=== PATIENT | male | born 1955 | race Caucasian/White ===

== ENCOUNTER 2018-10-14 11:53 | Emergency (ER) | payer MEDICARE ==
--- NOTE | 2018-10-14 12:08 | ED ---
GI/ HPI - HPI Summary HPI Summary: Pt is a 63 y/o M presenting to the ED brought in by EMS with a chief complaint of inability to urinate. He has hx of renal failure. He reports being unable to urinate since last night, but has a constant feeling that he has to go. He also reports sores on his bottom. His sx are worsened by movement, and alleviated by nothing. He had recent surgery to remove fatty deposits, and has two wound drains in place. He is currently at [facility] for rehabilitation. The pt declined bloodwork. - History of Current Complaint Chief Complaint: EDUrogenitalProblems Time Seen by Provider: 10/14/18 11:55 Stated Complaint: TROUBLE URINATING PER EMS Hx Obtained From: Patient, EMS Onset/Duration: Started Hours Ago, Still Present Timing: Constant, Lasting Hours Severity: Severe Current Severity: Severe Pain Intensity: 10 Location of Pain: Diffuse Pain Characteristics: Cramping Associated Signs and Symptoms: Positive: Other: - urinary urgency Aggravating Factor(s): Movement Alleviating Factor(s): Nothing - Allergy/Home Medications Allergies/Adverse Reactions: Allergies Allergy/AdvReac Type Severity Reaction Status Date / Time No Known Allergies Allergy Verified 10/14/18 12:05 Home Medications: Home Medications Acetaminophen TAB* [Tylenol TAB*] 650 mg PO Q6H PRN 10/14/18 [History Confirmed 10/14/18] Aspirin EC TAB* [Ecotrin EC Low Dose 81 MG*] 81 mg PO DAILY 10/14/18 [History Confirmed 10/14/18] Diphenoxylat/Atrop 2.5-0.025M* [Lomotil TAB*] 2 tab PO 0800,2000 10/14/18 [ History Confirmed 10/14/18] Ferrous Sulfate TAB* 325 mg PO DAILY 10/14/18 [History Confirmed 10/14/18] Furosemide TAB* [Lasix TAB*] 20 mg PO 0900,1600 10/14/18 [History Confirmed 09/29] Insulin ASPART (NF) [Novolog (NF)] 15 units SUBCUT 1230,1730 10/14/18 [History Confirmed 10/14/18] Insulin GLARGINE(*) [Lantus(*)] 125 units SUBCUT BEDTIME 10/14/18 [History Confirmed 10/14/18] Levothyroxine TAB* [Synthroid TAB*] 125 mcg PO 0500 10/14/18 [History Confirmed 10/14/18] Loperamide CAP* [Imodium CAP*] 2 mg PO DAILY PRN 10/14/18 [History Confirmed 09/29] Losartan TAB* [Cozaar TAB*] 25 mg PO DAILY 10/14/18 [History Confirmed 10/14/18] Metoprolol Succinate XL TAB* [Toprol XL TAB*] 100 mg PO 0900,2100 10/14/18 [ History Confirmed 10/14/18] Nystatin TOP POWDER* 1 applic TOPICAL BID 10/14/18 [History Confirmed 10/14/18] Ondansetron ODT TAB* [Zofran 4 MG Odt TAB*] 4 mg PO Q6H PRN 10/14/18 [History Confirmed 10/14/18] Simethicone TAB* [Mylicon TAB*] 80 mg PO Q6HR PRN 10/14/18 [History Confirmed ] metFORMIN* [Glucophage 500 MG TAB *] 500 mg PO 0900,1800 10/14/18 [History Confirmed 10/14/18] oxyCODONE TAB* [Roxycodone TAB 5 mg*] 5 mg PO Q4H PRN 10/14/18 [History Confirmed 10/14/18] PMH/Surg Hx/FS Hx/Imm Hx Previously Healthy: No Endocrine/Hematology History: Reports: Hx Diabetes, Hx Thyroid Disease - hypothyroidism Cardiovascular History: Reports: Hx Hypertension History: Reports: Hx Renal Disease Infectious Disease History: No Infectious Disease History: Denies: Traveled Outside the [place] in Last 30 Days - Family History Known Family History: Negative: Respiratory Disease - Social History [facility]: [facility] Hx Substance Use: No Substance Use Type: Reports: None Review of Systems Positive: urgency, other - inability to urinate Positive: Other - sores on his bottom All Other Systems Reviewed And Are Negative: Yes Physical Exam - Summary Physical Exam Summary: VITAL SIGNS: Reviewed. GENERAL: Patient is an obese male who is lying uncomfortably in the stretcher. Patient is not in any acute respiratory distress. Pt is presently very upset. HEAD AND FACE: No signs of trauma. No ecchymosis, hematomas or skull depressions. No sinus tenderness. EYES: PERRLA, EOMI x 2, No injected conjunctiva, no nystagmus. EARS: Hearing grossly intact. Ear canals and tympanic membranes are within normal limits. MOUTH: Oral mucosa is dry. NECK: Supple, trachea is midline, no adenopathy, no JVD, no carotid bruit, no c- spine tenderness, neck with full ROM. CHEST: Symmetric, no tenderness at palpation LUNGS: Clear to auscultation bilaterally. No wheezing or crackles. CVS: Regular rate and rhythm, S1 and S2 present, no murmurs or gallops appreciated. ABDOMEN: Soft, non-tender. No signs of distention. No rebound no guarding, and no masses palpated. Bowel sounds are normal. There is a healing wound from one hip to the other in length, closed with molly, without erythema, edema, or discharge. There are two drains in both hips. EXTREMITIES: FROM in all major joints, no edema, no cyanosis or clubbing. NEURO: Alert and oriented x 3. No acute neurological deficits. Speech is normal and follows commands. SKIN: Small type 1 ulcers in both buttocks. Triage Information Reviewed: Yes Vital Signs On Initial Exam: Initial Vitals Temp Pulse Resp BP Pulse Ox 97.2 F 117 19 134/103 98 10/14/18 12:03 10/14/18 12:03 10/14/18 12:03 10/14/18 12:03 10/14/18 12:03 Vital Signs Reviewed: Yes Diagnostics - Vital Signs Vital Signs Temp Pulse Resp BP Pulse Ox 10/14/18 12:03 97.2 F 117 19 134/103 98 - Laboratory Lab Statement: Any lab studies that have been ordered have been reviewed, and results considered in the medical decision making process. Re-Evaluation - Re-Evaluation 1st re-eval Re-Evaluation Time: 12:54 Change: Unchanged Comment: Made aware that the pt is refusing tomlinson catheter placement. GIGU Course/Dx - Course Assessment/Plan: This patient is a 63-year-old male who presents to the emergency department with a chief complaint of being unable to urinate since last night. At this point we offered the patient blood work, IV fluids, and the urinary Tomlinson catheter. We need to assess the patient for urinary retention , renal failure, UTI, hematuria. However, the patient refused. Patient refuses the blood work, patient refuses the Tomlinson catheter, he really refuses everything. I spent approximately 40 minutes explaining to the patient the need for all this workup however the patient refuses. The patient is alert and oriented 3 but he continues to refuse. We gave him a couple minutes to think about it, returned with the nurse, and we explained to him again for approximately 25 minutes of the needed workup however the patient still refuses. The patient reports that he will sign an AGAINST MEDICAL ADVICE. I extensively discussed with the patient the benefits and risk of leaving AMA. I also discussed the alternatives to leaving AMA, however, the patient still insist to leave the hospital AMA. The patient is clinically sober, free from distracting injury, appears to have intact insight and judgment and reason and in my opinion has the capacity to make decisions. Patient has full capacity and is cognitively intact. The patient presents with being unable to urinate, I have explained that I am concerned with all his symptoms and may represent urinary retention, sepsis, renal failure and . The patient verbalizes the understanding of my concerns. The primary nurse and the charge nurse also strongly recommended that the patient should not leave AMA. Patient understands the risk of leaving AMA, which includes but is not restricted to . Patient signed the AMA form. Patient was also advised to return to ED if he changes his mind, if the symptoms worsen, or other symptoms appear. Patient understands and agrees. Again, I discussed all the findings and test results with the patient. Patient was instructed to return to the emergency room immediately if any of the symptoms return or worsens. Plan of care was discussed with the patient and understands and agrees. All questions were answered at patient satisfaction. There were no further complaints or concerns. Patient signed AMA and he was discharged AMA. - Diagnoses Provider Diagnoses: Urinary retention Discharge - Sign-Out/Discharge Documenting (check all that apply): Patient Departure Patient Received Moderate/Deep Sedation with Procedure: No - Discharge Plan Condition: Stable Disposition: AGAINST MEDICAL ADVICE Referrals: Dandre Gutierrez MD [Medical Doctor] - Additional Instructions: Please follow up with your primary care provider within the next three days. Return to the ED with any new or worsening symptoms. - Billing Disposition and Condition Condition: STABLE Disposition: Against Medical Advice - Attestation Statements Document Initiated by Tristonibe: Yes Documenting Scribe: Luly Bingham Provider For Whom Scribe is Documenting (Include Credential): Carlos Peña MD. Scribe Attestation: ILuly, scribed for Carlos Peña MD. on 10/14/18 at 1753. Scribe Documentation Reviewed: Yes Provider Attestation: The documentation as recorded by the tristonibeLuly accurately reflects the service I personally performed and the decisions made by , Carlos Peañ MD. Status of Scribe Document: Viewed
[2018-10-14] MEDS ORDERED: NS 0.9% 1000 ML** 1,000 ML IV ONE (12:11)
--- OUTSIDE RECORDS SUMMARY | 2018-10-14 12:30 | XMS REPORT | Continuity of Care Document ---
:1955 External Reference #:[id number] Author Name Sarai Flores Care Team Providers Name Role Phone Dandre Gutierrez MD Primary Care Physician Unavailable Payers Date Identification Numbers Payment Provider Subscriber Policy Number: [id number] Medicare Augusto Santiago PayID: [id number] [address] [place] [address] Advance Directives Type Date Description Status Comment Other Directive 01/10/2018 Health Care Proxy Current and Verified Problems Date Description Provider Status Onset: 02/26/2017 Secondary diabetes mellitus Dandre Gutierrez M.D. Active Onset: 02/26/2017 Essential hypertension Dandre Gutierrez M.D. Active Onset: 02/26/2017 Mixed hyperlipidemia Dandre Gutierrez M.D. Active Onset: 02/26/2017 Hypothyroidism Dandre Gutierrez M.D. Active Onset: 02/26/2017 Gastroesophageal reflux disease Dandre Gutierrez M.D. Active Onset: 02/26/2017 Morbid obesity Dandre Gutierrez M.D. Active Onset: 03/26/2017 Anemia Dandre Gutierrez M.D. Active Onset: 11/03/2017 Type 2 diabetes mellitus Dandre Guiterrez M.D. Active Onset: 01/09/2018 Type 2 diabetes mellitus with ulcer Dandre Gutierrez M.D. Active Onset: 04/02/2018 Lymphedema Dnadre Gutierrez M.D. Active Family History Date Family Member(s) Observation Comments General No Current Problems adopted Social History Type Date Description Comments Sex Unknown Marital Status Lives With Alone Occupation Retired ETOH Use Denies alcohol use Tobacco Use Start: Unknown Patient has never smoked Recreational Drug Use Denies Drug Use Smoking Status Reviewed: 09/17/18 Patient has never smoked Exercise Type/Frequency Does not exercise Allergies, Adverse Reactions, Alerts Date Description Reaction Status Severity Comments 12/25/2017 Keflex difficulty breathing, diarrhea Active Severe 09/10/2018 Amoxicillin Active 09/10/2018 Gabapentin Active 09/10/2018 Sertraline Active 02/26/2017 NKDA Inactive Medications Medication Date Status Form Strength Qnty SIG Indications Ordering Provider Metformin HCL 04/02 Active Tablets 500mg 60tab 1 by mouth E11.622 s twice a day Matt with Nessa orosco Lantus 04/02 Active Solution 100Unit/M 10ml 125 units E11.622 L at bedtime Nessa Gutierrez Losartan Potassium 03/09 Active Tablets 50mg 30tab take one E11.622 s tablet by MD Gerry mouth every day Aspirin Adult Low Active Tablets 81mg 1 by mouth Unknown Dose /0000 DR every day Cholecalciferol Active Crystals 1000 units Unknown /0000 2 tabs po bid Docusate Sodium Active Capsules 100mg 1 by mouth Unknown /0000 twice a day Furosemide Active Tablets 20mg 90tab 1 by mouth Alize /0000 s bid Varn, N.P. Novolog Active Solution 100Unit/M 10 units Unknown /0000 L before meals Levothyroxine Active Tablets 125mcg 1 by mouth Unknown Sodium /0000 every day Metoprolol Active Tablets 100mg 90tab take 1/2 Guys Tartrate / s tablet by Matt mouth twice , M.D. a day Diclofenac Sodium Active Tablets 50mg take one Unknown /0000 DR capsule/tab let daily by mouth tid as needed for joint pain/ inflammatio n, avoid other nsaids Oxycodone-Acetamin Active Solution 5-325mg/5 3 times Unknown ophen /0000 ML daily prn Atorvastatin Active Tablets 40mg 1/2 by Unknown Calcium /0000 mouth every day Diphenoxylate-Atro Active Tablets 2.5-0.025 1 tab every Unknown pine /0000 mg 4-6 hours as needed for diarhea Ferrous Sulfate Active Tablets 324(65Fe) 1 by mouth Unknown /0000 DR mg Three Times a day Doxycycline 07/29 Hx Tablets 100mg 28tab one po bid L08.9 Alize s x 14 days Varn, - N.P. 09/16 Doxycycline 04/02 Hx Capsules 100mg 20cap 1 cap twice L03.115 Rodolfo cl s a day Prashant Del Castillo M.D.,FACP 07/23 Clindamycin HCL 01/28 Hx Capsules 300mg 30cap 1 cap by s mouth every Pachikara - 8h , M.D. 03/09 Lantus Solostar 01/09 Hx Solution 100Unit/M 45ml inject 110 E11.622 Pen-Injec L units Pachikara - t beneath , M.DLloyd 04/02 skin at bedtime, Losartan Potassium 01/09 Hx Tablets 25mg 30tab 1 by mouth E11.622 s once a day Pachikara - M.DLloyd 03/09 Doxycycline 12/25 Hx Capsules 100mg 20cap 1 cab twice s a day Pachika - M.DLloyd 01/09 Keflex 12/22 Hx Capsules 500mg 30cap 1 by mouth s three times Pachikara - a day , M.D. 01/01 Humulin R 11/03 Hx Solution 100Unit/M 10ml use as E11.9 L directed Pachikara - after each , M.D. 08/17 Lantus Solostar 10/31 Hx Solution 100Unit/M 15ml inject 110 Pen-Injec L u units at Pachikara - t bedtime , M.D. 01/09 Lantus Solostar 10/29 Hx Solution 100Unit/M 15ml inject 100 Pen-Injec L u units at Pachikara - t bedtime , M.D. 10/31 Glipizide 10/20 Hx Tablets 5mg 30tab take 1 s tablet Pachikara - after , M.DLloyd 10/29 break Nateglinide 10/17 Hx Tablets 60mg 90tab three times s a day Pachikara - , M.D. 10/29 Starlix 10/17 Hx Tablets 60mg 90tab 1 tab 3 s times daily Matt Cerda M.D. 10/20 Tradjenta 10/07 Hx Tablets 5mg 30tab 1 by mouth s every day Matt Cerda M.D. 10/17 Metformin HCL 10/01 Hx Tablets 500mg 60tab 1 by mouth E11.622 s twice a day Matt eCrda M.D. 10/07 Bactrim DS 09/18 Hx Tablets 800-160mg 20tab 1 by mouth s twice a day Matt Cerda M.D. 09/28 Keflex 09/16 Hx Capsules 500mg 30cap 1 by mouth s three times Pachika - a day , LaylaDLloyd 09/18 Diflucan 05/28 Hx Tablets 100mg 10tab 2 tab today s and then 1 Pachika - tab daily , Nessa 03/09 Synthroid 03/26 Hx Tablets 150mcg 30tab 1 by mouth E03.9 s every day Matt Cerda M.D. 07/16 Synthroid 03/21 Hx Tablets 25mcg 30tab take one s tablet by Pachikara - mouth Nessa raphael 03/21 time daily empty stomach Levothyroxine 03/21 Hx Tablets 25mcg 30tab take one Guys s tablet by Pachikara - mouth Nessa raphael 03/21 time daily empty stomach Levothyroxine 03/21 Hx Tablets 25mcg 30tab take one Dandre Sodium s tablet by Pachikara - mouth every , MLloydDLloyd 08/17 Amoxicillin/Clavul 00/00 Hx Tablets 875-125mg Take One Unknown anate Potassium /0000 Tablet By - Mouth Every 07/04 12 Ciprofloxacin HCL 00 Hx Tablets 500mg Take One Unknown /0000 Tablet By - Mouth Two 07/04 Times A Day Amoxicillin/Clavul 00/00 Hx Tablets 875-125mg Take One Unknown anate Potassium /0000 Tablet By - Mouth Every 07/04 12 Atorvastatin Hx Tablets 80mg 1 by mouth Unknown Calcium /0000 every day - 09/15 Ferrousul Hx Tablets 325(65Fe) once daily Unknown /0000 mg - 09/16 Lantus Hx Solution 100Unit/M 85 U bid Unknown /0000 L - 10/29 Magnesium Citrate Hx Tablets 100mg 1 tab in Unknown /0000 evening pts - med list 03/30 states 200 mg Pantoprazole Hx Tablets 40mg 1 by mouth Unknown Sodium /0000 DR every day - 07/16 Prochlorperazine Hx Tablets 10mg Unknown Maleate /0000 - 07/28 Atropine Sulfate Hx Solution 1% 2 drops by Unknown /0000 mouth every - 3 hours as 09/16 excessive secretions Immunizations CPT Code Status Date Vaccine Lot # [id number] Given 03/12/2018 Pneumonia Vaccine [id number] Vital Signs Date Vital Result Comment 09/17/2018 11:01am Height 70 inches 5'10" Weight 245.50 lb No Shoes Heart Rate 60 /min BP Systolic Sitting 112 mmHg Lue Large Cuff BP Diastolic Sitting 64 mmHg Lue Large Cuff Respiratory Rate 16 /min BMI (Body Mass Index) 35.2 kg/m2 Ejection Fraction NONE 08/17/2018 11:08am Height 70 inches 5'10" Weight 330.00 lb pt. states this morning Heart Rate 72 /min BP Systolic Sitting 132 mmHg BP Diastolic Sitting 72 mmHg Body Temperature 97.4 F O2 % BldC Oximetry 94 % BMI (Body Mass Index) 47.3 kg/m2 07/29/2018 11:21am Height 70 inches 5'10" Weight 332.00 lb Heart Rate 63 /min BP Systolic 134 mmHg BP Diastolic 74 mmHg Body Temperature 96.6 F O2 % BldC Oximetry 97 % BMI (Body Mass Index) 47.6 kg/m2 04/02/2018 11:40am Height 70 inches 5'10" Weight 332.50 lb Heart Rate 63 /min BP Systolic Sitting 154 mmHg large adult cuff left arm BP Diastolic Sitting 72 mmHg large adult cuff left arm Body Temperature 97.1 F O2 % BldC Oximetry 99 % at rest on room air BMI (Body Mass Index) 47.7 kg/m2 03/12/2018 9:36am Height 70 inches 5'10" Weight 326.00 lb Heart Rate 70 /min BP Systolic 140 mmHg BP Diastolic 84 mmHg O2 % BldC Oximetry 96 % BMI (Body Mass Index) 46.8 kg/m2 01/09/2018 8:33am Height 70 inches 5'10" Weight 330.00 lb Heart Rate 66 /min BP Systolic Sitting 146 mmHg BP Diastolic Sitting 80 mmHg Body Temperature 96.6 F O2 % BldC Oximetry 98 % BMI (Body Mass Index) 47.3 kg/m2 11/03/2017 11:48am Height 70 inches 5'10" Weight 332.00 lb Heart Rate 74 /min BP Systolic 130 mmHg BP Diastolic 62 mmHg Body Temperature 97.8 F O2 % BldC Oximetry 97 % BMI (Body Mass Index) 47.6 kg/m2 10/01/2017 11:28am Height 70 inches 5'10" Weight 325.50 lb Heart Rate 68 /min BP Systolic Sitting 148 mmHg BP Diastolic Sitting 86 mmHg Body Temperature 97.4 F O2 % BldC Oximetry 97 % BMI (Body Mass Index) 46.7 kg/m2 07/16/2017 10:10am Height 70 inches 5'10" Heart Rate 81 /min BP Systolic Sitting 132 mmHg BP Diastolic Sitting 80 mmHg O2 % BldC Oximetry 95 % 06/04/2017 11:24am Heart Rate 73 /min BP Systolic Sitting 125 mmHg BP Diastolic Sitting 80 mmHg O2 % BldC Oximetry 98 % 05/14/2017 11:18am Height 70 inches 5'10" 03/26/2017 4:15pm Height 70 inches 5'10" Weight 308.19 lb Heart Rate 80 /min BP Systolic 130 mmHg BP Diastolic 70 mmHg O2 % BldC Oximetry 98 % BMI (Body Mass Index) 44.2 kg/m2 02/26/2017 3:30pm Height 70 inches 5'10" Weight 334.00 lb Heart Rate 88 /min BP Systolic 148 mmHg BP Diastolic 78 mmHg Body Temperature 97.3 F O2 % BldC Oximetry 95 % BMI (Body Mass Index) 47.9 kg/m2 Results Test Date Facility Test Result H/L Range Note Laboratory test 08/17/2018 [facility] In House Hemoglobin A1c 7.1 High 5-7 finding Laboratory test 01/09/2018 [facility] House Hemoglobin A1c 8.1 High 5-7 finding Wound 10/07/2017 [facility] Wound/Misc SEE RESULT 1, 2 Culture/Sensi [address] [place] [address] Stain [phone] Laboratory test 10/01/2017 [facility] In House Hemoglobin A1c 7.3 High 5-7 finding Iron And Tibc 05/09/2017 [facility] Iron 52 g/dL N 50-212 3 Serum [address] [place], [place] [address] [phone] Unsaturated Iron Binding 288 g/dL N Total Iron Binding Capacity 340 g/dL N 250-450 % Iron Saturation 15 % N 15-55 Vitamin B12 And 05/09/2017 [facility] Vitamin B12 355 pg/mL N 180-914 4 Folate Serum [address] [place] [address] [phone] Folic Acid (Folate) 11.68 ng/mL N >3.99 5 Laboratory test 05/09/2017 [facility] TSH (Thyroid 7.72 High 0.34-5.60 finding [address] [place] Stim Horm) mcIU/[place] [address] [phone] Free T4 (Free Thyroxine) 1.00 ng/dL N 0.61-1.12 CMP Panel 03/20/2017 [facility] Sodium 136 mmol/L N 133-145 [address] [place] [address] [phone] Potassium 4.9 mmol/L N 3.5-5.0 Chloride 101 mmol/L N 101-111 Co2 Carbon Dioxide 28 mmol/L N 22-32 Anion Gap 7 mmol/L N 2-11 Glucose 103 mg/dL High 70-100 Blood Urea Nitrogen 21 mg/dL N 6-24 Creatinine 1.72 mg/dL High 0.67-1.17 BUN/Creatinine Ratio 12.2 N 8-20 Calcium 9.7 mg/dL N 8.6-10.3 Total Protein 7.4 g/dL N 6.4-8.9 Albumin 3.3 g/dL N 3.2-5.2 Globulin 4.1 g/dL High 2-4 Albumin/Globulin Ratio 0.8 Low 1-3 Total Bilirubin 0.30 mg/dL N 0.2-1.0 Alkaline Phosphatase 90 U/L N 34-104 Alt 12 U/L N 7-52 Ast 27 U/L N 13-39 Egfr Non- 40.4 N >60 Egfr 51.9 N >60 6 Laboratory test 03/20/2017 [facility] Cortisol 16.06 g/dL N [address] [place] [address] [phone] Lipid Panel 03/20/2017 [facility] Triglycerides 228 mg/dL N [address] [place] [address] [phone] Cholesterol 125 mg/dL N 9 HDL Cholesterol 27.1 mg/dL N 10 LDL Cholesterol 52 mg/dL N 11 Laboratory test 03/20/2017 [facility] TSH (Thyroid 14.34 High 0.34-5.[address] Stim Horm) mcIU/[place] [address] [phone] CBC W/Auto Diff 03/20/2017 [facility] White Blood 8.9 10^3/uL N 3.5-10.[address] [place] [address] [phone] Red Blood Count 4.74 10^6/uL N 4.0-5.4 Hemoglobin 11.4 g/dL Low 14.0-18.0 Hematocrit 36 % Low 42-52 Mean Corpuscular Volume 77 fL Low 80-94 Mean Corpuscular Hemoglobin 24 pg Low 27-31 Mean Corpuscular HGB Conc 31 g/dL N 31-36 Red Cell Distribution Width 16 % High 10.5-15 Platelet Count 286 10^3/uL N 150-450 Mean Platelet Volume 7 um3 Low 7.4-10.4 Abs Neutrophils 4.9 10^3/uL N 1.5-7.7 Abs Lymphocytes 3.0 10^3/uL N 1.0-4.8 Abs Monocytes 0.6 10^3/uL N 0-0.8 Abs Eosinophils 0.3 10^3/uL N 0-0.6 Abs Basophils 0.1 10^3/uL N 0-0.2 Abs Nucleated RBC 0.01 10^3/uL N Granulocyte % 54.4 % N 38-83 Lymphocyte % 34.0 % N 25-47 Monocyte % 7.1 % N 1-9 Eosinophil % 3.6 % N 0-6 Basophil % 0.9 % N 0-2 Nucleated Red Blood Cells % 0.1 N Urine Microalbumin 03/20/2017 [facility] Urine Creatinine 230.58 mg/dL N Random [address] [place], [place] [id number] [phone] Ur Microalbumin (mg/L) 290.0 mg/L N Urine Microalbumin/Creatinine 125.7 ug/mg High <31 Laboratory test 03/20/2017 [facility] Prealbumin 24 mg/dL N 18 -[address] [place] [address] [phone] Hemoglobin A1c (Glyco HGB) 6.8 % High Less than 6.0 12 Wound 03/13/2017 [facility] Wound/Misc SEE RESULT 13 Culture/Sensi [address] [place] [address] Stain [phone] Laboratory test 02/26/2017 [facility] In House Hemoglobin A1c 6.2 5-7 finding 1 PRESSURE WND-ABDOMINAL FOLD LT 2 SEE RESULT BELOW Name: SANTIAGOAUGUSTO E : [address]: Baltazar Machado MD Acct: [id number] Unit: [id number] AGE: 62 Location: WOUND Re10/07/17 SEX: M Status: PRE REF SPEC: [id number] PAMELA: 10/07/17-1005 [facility] DR: Baltazar Machado MD REQ: [id number] RECD: 03/27/18-1113 STATUS: COMP [facility] DR: Dandre Gutierrez MD _ SOURCE: ABDOMEN SPDESC: ORDERED: Culture Stain COMMENTS: PRESSURE WND-ABDOMINAL FOLD LT QUERIES: Specimen Description PRESSURE WND-ABDOMINAL FOLD LT Procedure Result Reported Site Wound/Misc Gram Stain Final 10/07/17- 1221 ML 1+ Neutrophils 1+ Gram Positive Bacilli , resembling diptheroids Wound/Misc Culture Final 10/10/17- 0857 ML Organism 1 CORYNEBACTERIUM STRIATUM Quantity 3+ Organism 2 STAPHYLOCOCCUS AUREUS Quantity 1+ Organism 3 NORMAL IBIS Quantity 2+ 2. STAPHYLOCOCCUS AUREUS M.I.C. RX --------- ------ Penicillin >=0.5 R Clindamycin <=0.25 S Erythromycin <=0.25 S Gentamicin <=0.5 S Linezolid 2 S Oxacillin 0.5 S * Quinupristin/Dalfopristin <=0.25 S Rifampin <=0.5 S Tetracycline >=16 R Trimethoprim/Sulfamethoxazole <=10 S Vancomycin 1 S CONTINUED ON NEXT PAGE DEPARTMENT OF PATHOLOGY, [address] [place] [address] Carlos Brewer M.D. Director [facility] # [id number] Patient: AUGUSTO SANTIAGO [id number] (Continued) Specimen: [id number] Collected: 10/07/17-1004 Received: 10/07/17-1112 (Continued) Procedure Result Reported Site Wound/Misc Culture Final (continued) 10/10/17- 19 2. STAPHYLOCOCCUS AUREUS (continued) M.I.C. RX --------- ------ Imipenem-Deduced S * Ampicillin/Sulbactam-Deduced S Cefazolin-Deduced S * These antibiotics are not available in the [facility] Formulary Contact the Microbiology Department for any additional antibiotic reporting. * ML - Main Lab . END OF REPORT DEPARTMENT OF PATHOLOGY, [address] [place] [address] Carlos Brewer M.D. Director [facility] # [id number] Normal Range 180 to 914 Indeterminate Range 145 to 180 Deficient Range <145 5 [id number] Because ethnic data is not always readily available, this report includes an eGFR for both -Americans and non- Americans. The National Kidney Disease Education Program (NKDEP) does not endorse the use of the MDRD equation for patients that are not between the ages of 18 and 70, are , have extremes of body size, muscle mass, or nutritional status, or are non- or non-. According to the National Kidney Foundation, irrespective of diagnosis, the stage of the disease is based on the level of kidney function: Stage Description GFR(mL/min/1.73 m(2)) 1 Kidney damage with normal or decreased GFR 90 2 Kidney damage with mild decrease in GFR 60-89 3 Moderate decrease in GFR 30-59 4 Severe decrease in GFR 15-29 5 Kidney failure <15 (or dialysis) 7 AM 8.7-22.4 PM <10 8 Desirable <150 Borderline high 150-199 High 200-499 Very High >500 9 Desirable <200 Borderline high 200-239 High >239 10 Low <40 Desirable: 40-60 High: >60 11 Desirable: <100 mg/dL Near Optimal: 100-129 mg/dL Borderline High: 130-159 mg/dL High: 160-189 mg/dL Very High: >189 mg/dL 12 Therapeutic target for the treatment of diabetes Mellitus patients is <7% HBA1C, and in selective patients <6.0%.Please refer to [place] [employer] Diabetic care guidelines for further information. 13 SEE RESULT BELOW Name: AUGUSTO SANTIAGO : [address]: Baltazar Machado MD Acct: [id number] Unit: [id number] AGE: 61 Location: WOUND Re03/13/17 SEX: M Status: REG REF SPEC: [id number] PAMELA: 03/13/17-1126 [facility] DR: Baltazar Machado MD REQ: [id number] RECD: 03/13/17172 STATUS: NIK RETANA DR: Rony Nevarez MD _ SOURCE: LEG,LEFT SPDESC: ORDERED: Culture Stain QUERIES: Specimen Description LEFT LOWER LEG WOUND Procedure Result Reported Site Wound/Misc Gram Stain Final 03/14/17- 724 ML 2+ Epithelial Cells No Neutrophils Observed 2+ Gram Positive Cocci Wound/Misc Culture Final 03/16/17- 851 ML Organism 1 STAPHYLOCOCCUS AUREUS Quantity 2+ Organism 2 PROTEUS MIRABILIS Quantity 1+ 1. STAPHYLOCOCCUS AUREUS M.I.C. RX --------- ------ Penicillin >=0.5 R Clindamycin >=8 R Erythromycin >=8 R Gentamicin <=0.5 S Linezolid 2 S Nitrofurantoin <=16 S Oxacillin 0.5 S * Quinupristin/Dalfopristin <=0.25 S Rifampin <=0.5 S Tetracycline >=16 R Trimethoprim/Sulfamethoxazole <=10 S Vancomycin 1 S Imipenem-Deduced S CONTINUED ON NEXT PAGE * ML=Testing performed at Main Lab DEPARTMENT OF PATHOLOGY, [address] [place] [address] Carlos Brewer M.D. Director [facility] # [id number] Patient: AUGUSTO SANTIAGO [id number] (Continued) Specimen: [id number] Collected: 03/13/17 Received: 03/13/17 (Continued) Procedure Result Reported Site Wound/Misc Culture Final (continued) 03/16/17- 851 1. STAPHYLOCOCCUS AUREUS (continued) M.I.C. RX --------- ------ * Ampicillin/Sulbactam-Deduced S Cefazolin-Deduced S 2. PROTEUS MIRABILIS M.I.C. RX --------- ------ Ampicillin <=2 S Cefazolin <=4 S Cefepime <=1 S Ceftriaxone <=1 S Ciprofloxacin <=0.25 S Gentamicin <=1 S Levofloxacin <=0.12 S Meropenem <=0.25 S Nitrofurantoin 128 R Tetracycline >=16 R Pipercillin/Tazobactam <=4 S Trimethoprim/Sulfamethoxazole <=20 S Amoxicillin/Clavulanic Acid <=2 S Aztreonam <=1 S * These antibiotics are not available in the [facility] Formulary Contact the Microbiology Department for any additional antibiotic reporting. Contact the Microbiology Department for any additional antibiotic reporting. * ML - MAIN LAB (PSC1) . END OF REPORT * ML=Testing performed at Main Lab DEPARTMENT OF PATHOLOGY, [address] [place] [address] Carlos Brewer M.D. Director [facility] # [id number] Procedures Date Code Description Status 09/17/2018 24186 EKG Tracing & Interpretation Completed 09/10/2018 91226 Removal Devitalized Tissue Wound Greater Than 20 Square Completed CM 09/10/2018 68643 Removal Devitalization Tissue Wound Less Than Equal 20 [address] CM 08/20/2018 15002 Removal Devitalized Tissue Wound Greater Than 20 Square Completed CM 08/20/2018 35760 Removal Devitalization Tissue Wound Less Than Equal [address] CM 07/30/2018 70667 Removal Devitalized Tissue Wound Greater Than 20 Square Completed CM 07/30/2018 59197 Removal Devitalization Tissue Wound Less Than Equal [address] CM 07/16/2018 21757 Removal Devitalized Tissue Wound Greater Than 20 Square Completed CM 07/16/2018 03679 Removal Devitalization Tissue Wound Less Than Equal [address] 06/23/2018 19717 Removal Devitalized Tissue Wound Greater Than 20 Square Completed CM 06/23/2018 72178 Removal Devitalization Tissue Wound Less Than Equal [address] 06/09/2018 97950 Removal Devitalization Tissue Wound Less Than Equal [address] 06/09/2018 20873 Removal Devitalized Tissue Wound Greater Than 20 Square Completed CM 05/14/2018 92716 Removal Devitalization Tissue Wound Less Than Equal [address] CM 04/23/2018 49624 Removal Devitalization Tissue Wound Less Than Equal [address] CM 04/09/2018 60618 Removal Devitalization Tissue Wound Less Than Equal [address] CM 03/12/2018 77617 Removal Devitalization Tissue Wound Less Than Equal [address] CM 02/26/2018 29421 Removal Devitalization Tissue Wound Less Than Equal [address] CM 02/12/2018 73269 Removal Devitalization Tissue Wound Less Than Equal [address] CM 01/22/2018 57396 Removal Devitalization Tissue Wound Less Than Equal [address] CM 01/08/2018 42844 Removal Devitalization Tissue Wound Less Than Equal [address] 12/18/2017 04947 Removal Devitalization Tissue Wound Less Than Equal [address] CM 12/04/2017 68175 Removal Devitalization Tissue Wound Less Than Equal [address] CM 11/13/2017 71979 Removal Devitalized Tissue Wound Greater Than 20 Square Completed CM 11/13/2017 82046 Removal Devitalization Tissue Wound Less Than Equal [address] CM 10/28/2017 76962 Removal Devitalization Tissue Wound Less Than Equal [address] CM 10/07/2017 71252 Removal Devitalization Tissue Wound Less Than Equal [address] CM 09/25/2017 55604 Removal Devitalization Tissue Wound Less Than Equal [address] CM 08/28/2017 52643 Removal Devitalization Tissue Wound Less Than Equal [address] CM 08/12/2017 62074 Removal Devitalized Tissue Wound Greater Than 20 Square Completed CM 08/12/2017 55981 Removal Devitalization Tissue Wound Less Than Equal [address] CM 07/22/2017 26810 Removal Devitalized Tissue Wound Greater Than 20 Square Completed CM 07/22/2017 39199 Removal Devitalization Tissue Wound Less Than Equal [address] CM 06/19/2017 07724 Removal Devitalization Tissue Wound Less Than Equal [address] CM 06/19/2017 53020 Removal Devitalized Tissue Wound Greater Than 20 Square Completed CM 05/22/2017 52627 Removal Devitalized Tissue Wound Greater Than 20 Square Completed CM 05/22/2017 24782 Removal Devitalization Tissue Wound Less Than Equal [address] CM 05/01/2017 01552 Removal Devitalized Tissue Wound Greater Than 20 Square Completed CM 05/01/2017 43088 Removal Devitalization Tissue Wound Less Than Equal [address] CM 04/10/2017 34775 Removal Devitalization Tissue Wound Less Than Equal [address] CM 03/13/2017 29442 Removal Devitalized Tissue Wound Greater Than 20 Square Completed CM 03/13/2017 72951 Removal Devitalization Tissue Wound Less Than Equal [address] CM 07/14/2013 [id number] Colonoscopy Completed 10/12/2007 30399 EKG, Interpretation Only Completed 10/12/2007 15811 EKG, Interpretation Only Completed Encounters Type Date Location Provider Dx Diagnosis Office Visit 08/17/2018 [facility] Internal Latrice Garrett MD E11.622 Type 2 diabetes 11:00a Medicine - mellitus with [place] other skin ulcer E66.01 Morbid (severe) obesity due to excess calories I10 Essential (primary) hypertension I89.0 Lymphedema, not elsewhere classified I25.10 Athscl heart disease of [place] coronary artery w/o ang pctrs W19.xxxA Unspecified fall, initial encounter L97.92 Non-prs chronic ulc unsp prt of l low leg w unsp severity Office Visit 07/29/2018 11:00a [facility] Internal Alize Doran, L08.9 Local infection of Medicine - N.P. the skin and [place] subcutaneous tissue, unsp Office Visit 04/02/2018 11:40a [facility] Sosa Amos E11.622 Type 2 diabetes Adriana Gutierrez, mellitus with [address] M.D. other skin ulcer I89.0 Lymphedema, not elsewhere classified L03.115 Cellulitis of right lower limb Office Visit 03/12/2018 9:40a [facility] Sosa Gutierrez E11.622 Type 2 diabetes Medicine - Nessa mellitus with [address] other skin ulcer I10 Essential (primary) hypertension Z11.59 Encounter for screening for other viral diseases Z23 Encounter for immunization Office Visit 01/09/2018 8:40a [facility] Sosa Gutierrez E11.622 Type 2 diabetes Medicine Prashant Szymanski mellitus with [address] other skin ulcer E66.01 Morbid (severe) obesity due to excess calories E78.2 Mixed hyperlipidemia E03.9 Hypothyroidism, unspecified Z11.59 Encounter for screening for other viral diseases Office Visit 11/03/2017 [facility] Sosa Amos E11.9 Type 2 diabetes 11:40a Adriana Gutierrez M.D. mellitus without [address] complications Office Visit 10/01/2017 [facility] Sosa Amos E11.622 Type 2 diabetes 11:40a Adriana Gutierrez M.D. mellitus with [place] other skin ulcer E78.2 Mixed hyperlipidemia E03.9 Hypothyroidism, unspecified K21.9 Gastro-esophageal reflux disease without esophagitis L03.115 Cellulitis of right lower limb E66.01 Morbid (severe) obesity due to excess calories Z68.42 Body mass index (BMI) 45.0-49.9, adult Office Visit 06/04/2017 11:20a [facility] Sosa Hortonra, E11.622 Type 2 Adriana Cerda M.D. diabetes [place] mellitus with other skin ulcer E03.9 Hypothyroidism, unspecified I10 Essential (primary) hypertension D64.9 Anemia, unspecified Office Visit 03/26/2017 [facility] Internal Dandre E03.9 Hypothyroidism, 4:00p Adriana Gutierrez M.D. unspecified [place] D64.9 Anemia, unspecified Office Visit 03/13/2017 9:30a Wound Care Baltazar Hernandez E11.622 Type 2 diabetes Center AT [facility] Nessa Machado mellitus with other skin ulcer E11.621 Type 2 diabetes mellitus with foot ulcer E66.01 Morbid (severe) obesity due to excess calories Z79.4 senior care (current) use of insulin I10 Essential (primary) hypertension E78.5 Hyperlipidemia, unspecified E03.9 Hypothyroidism, unspecified Office Visit 02/26/2017 3:20p [facility] Internal Dandre E08.621 Diabetes Adriana Gutierrez M.D. mellitus due to [place] underlying condition w foot ulcer I10 Essential (primary) hypertension E78.2 Mixed hyperlipidemia E03.9 Hypothyroidism, unspecified K21.9 Gastro-esophageal reflux disease without esophagitis E66.01 Morbid (severe) obesity due to excess calories Z68.42 Body mass index (BMI) 45.0-49.9, adult Office Visit 11/18/2007 3:30p Neurosurgery Mohan Morrow 724.5 [facility] JORGE Cobb M.D. [place] Office Visit 07/18/2006 9:00a Neurosurgery Mohan Ortiz.5 [facility] Cobb M.D. Plan of Treatment 09/17/2018 - Flash Martin DO FACCZ01.810 Encounter for preprocedural cardiovascular examinationFollow up:f/u 1 yearI25.2 Old myocardial yoorguvxlpK11.69 Type 2 diabetes mellitus with other specified [id number] Essential (primary) otprpitcqnqxN19.5 Hyperlipidemia, unspecified
[2018-10-14 13:36] VITALS: BP 123/63
== END 2018-10-14 13:35 | disposition left against medical advice (07) ==
LOC: ED 11:53
DX: R33.9 Retention of urine, unspecified (principal); I10 Essential (primary) hypertension; E11.9 Type 2 diabetes mellitus without complications; E03.9 Hypothyroidism, unspecified; Z79.82 Long term (current) use of aspirin; Z79.4 Long term (current) use of insulin; Z79.899 Other long term (current) drug therapy; Z53.21 Procedure and treatment not carried out due to patient leaving prior to being seen by health care provider
CPT/HCPCS: 96360; 99282

== ENCOUNTER → 2018-12-03 13:52 | Emergency (ER) | payer MEDICARE ==
[~2018-12-03 13:52] MED LIST: ED Piperacillin/Tazobac 3.375 3.375 GM/100 ML PREMIX.SET IVPB ONE; Lidocaine 2% JELLY* 6 ML JELLY TOPICAL ONE; Lidocaine 4% GEL* 10 GM TUBE TOPICAL ONE; NS 0.9% 250 ML* 250 ML ONE; NS 0.9% IV ONE; Norepinephrine 16MCG/ML IVPRE* 4,000 MCG/250 ML BAG IV SCH; Vancomycin(*) 1,500 MG in NS 0.9% 250 ML* 250 ML IVPB ONE; fentaNYL* 50 MCG/ML 2 ML VIAL (100 MCG VIAL) IV SLOW PU ONE
--- NOTE | 2018-12-03 14:47 | ED ---
Sepsis HPI - HPI Summary HPI Summary: This patient is a 63 year old male presenting to [facility] with a chief complaint of foul swelling wounds since today. The patient had surgery 3 weeks ago at [facility] due to infection. He had a wound recheck today. He had a fall last night so they want him evaluated. The patient reports abdominal pain. He rates his pain 8/10 in severity. He was sent in today from the wound clinic, the wound attending, Dr. Machado, had concerned that his wounds were more malodorous than usual, and that he was hypotensive. The patient is a poor historian, he reports abdominal pain which as been present for over a week. He is unsure if he has had any fever or dizziness or weakness. Atorvastatin* [Lipitor*] 20 mg PO BEDTIME 10/30/17 [History Confirmed 10/14/18] Cholecalciferol TAB* [Vitamin D TAB*] 1,000 unit PO 0900,2100 10/30/17 [History Confirmed 10/14/18] Insulin Aspart [Novolog Flexpen] 10 unit SUBCUT DAILY 10/30/17 [History Confirmed 10/14/18] Acetaminophen TAB* [Tylenol TAB*] 650 mg PO Q6H PRN 10/14/18 [History Confirmed 10/14/18] Aspirin EC TAB* [Ecotrin EC Low Dose 81 MG*] 81 mg PO DAILY 10/14/18 [History Confirmed 10/14/18] Diphenoxylat/Atrop 2.5-0.025M* [Lomotil TAB*] 2 tab PO 0800,2000 10/14/18 [ History Confirmed 10/14/18] Ferrous Sulfate TAB* 325 mg PO DAILY 10/14/18 [History Confirmed 10/14/18] Furosemide TAB* [Lasix TAB*] 20 mg PO 0900,1600 10/14/18 [History Confirmed 09/29] Insulin ASPART (NF) [Novolog (NF)] 15 units SUBCUT 1230,1730 10/14/18 [History Confirmed 10/14/18] Insulin GLARGINE(*) [Lantus(*)] 125 units SUBCUT BEDTIME 10/14/18 [History Confirmed 10/14/18] Levothyroxine TAB* [Synthroid TAB*] 125 mcg PO 0500 10/14/18 [History Confirmed 10/14/18] Loperamide CAP* [Imodium CAP*] 2 mg PO DAILY PRN 10/14/18 [History Confirmed 09/29] Losartan TAB* [Cozaar TAB*] 25 mg PO DAILY 10/14/18 [History Confirmed 10/14/18] Metoprolol Succinate XL TAB* [Toprol XL TAB*] 100 mg PO 0900,2100 10/14/18 [ History Confirmed 10/14/18] Nystatin TOP POWDER* 1 applic TOPICAL BID 10/14/18 [History Confirmed 10/14/18] Ondansetron ODT TAB* [Zofran 4 MG Odt TAB*] 4 mg PO Q6H PRN 10/14/18 [History Confirmed 10/14/18] Simethicone TAB* [Mylicon TAB*] 80 mg PO Q6HR PRN 10/14/18 [History Confirmed ] metFORMIN* [Glucophage 500 MG TAB *] 500 mg PO 0900,1800 10/14/18 [History Confirmed 10/14/18] oxyCODONE TAB* [Roxycodone TAB 5 mg*] 5 mg PO Q4H PRN 10/14/18 [History Confirmed 10/14/18] /10 in severity. Pt denies any fever, chills, erythema of eyes, sore throat, CP , SOB, cough, N/V, dysuria, hematuria, myalgia, edema, rash, or dizziness. - History of Current Complaint Chief Complaint: EDGeneral Time Seen by Provider: 12/03/18 14:34 Stated Complaint: GENERAL ILLNESS PER STAFF Hx Obtained From: Patient Onset/Duration: Started Hours Ago Timing: Constant Onset Severity: Moderate Current Severity: Moderate Pain Intensity: 6 Pain Scale Used: 0-10 Numeric - Allergy/Home Medications Allergies/Adverse Reactions: Allergies Allergy/AdvReac Type Severity Reaction Status Date / Time No Known Allergies Allergy Verified 12/03/18 14:18 Home Medications: Home Medications Ascorbic Acid TAB* [Vitamin C TAB*] 250 mg PO DAILY 12/03/18 [History Confirmed 12/03/18] Bumetanide TAB* [Bumex 1 MG TAB*] 1 mg PO DAILY 12/03/18 [History Confirmed ] Escitalopram * [Lexapro 10 mg (NF)] 10 mg PO DAILY 12/03/18 [History Confirmed 12/03/18] Lidocaine 4% TOPICAL* [Xylocaine Topical 4%*] 1 applic TOPICAL TUTHSA 12/03/18 [ History Confirmed 12/03/18] Melatonin 5 mg PO BEDTIME 12/03/18 [History Confirmed 12/03/18] oxyCODONE/Acetamin 5/325 MG* [Percocet 5/325 TAB*] 1 tab PO Q4H PRN 12/03/18 [ History Confirmed 12/03/18] PMH/Surg Hx/FS Hx/Imm Hx Endocrine/Hematology History: Reports: Hx Diabetes, Hx Thyroid Disease - hypothyroidism Cardiovascular History: Reports: Hx Hypertension History: Reports: Hx Renal Disease Infectious Disease History: No Infectious Disease History: Denies: Traveled Outside the [place] in Last 30 Days - Family History Known Family History: Negative: Respiratory Disease - Social History Alcohol Use: None Hx Substance Use: No Substance Use Type: Reports: None Smoking Status (MU): Never Smoked Tobacco Review of Systems Negative: Fever, Chills Negative: Erythema Negative: Sore Throat Negative: Chest Pain Negative: Shortness Of Breath, Cough Positive: Abdominal Pain. Negative: Vomiting, Nausea Negative: dysuria, hematuria Negative: Myalgia, Edema Negative: Rash Neurological: Other - Neg: Dizziness All Other Systems Reviewed And Are Negative: No Physical Exam - Summary Physical Exam Summary: Constitutional: Well-developed, Well-nourished, Alert. (-) Distressed Skin: Warm, Dry HENT: Normocephalic; Atraumatic Eyes: Conjunctiva normal Neck: Musculoskeletal ROM normal neck. (-) JVD, (-) Stridor, (-) Tracheal deviation Cardio: Rhythm regular, rate normal, Heart sounds normal; Intact distal pulses; The pedal pulses are 2+ and symmetric. Radial pulses are 2+ and symmetric. (-) Murmur Pulmonary/Chest wall: Effort normal. (-) Respiratory distress, (-) Wheezes, (-) Rales Abd/: Soft, obese, panniculitis is present. The lower abdomen is diffusely erythematous and tender to palpation. There are bilateral open lower incisions which are draining purulent material. The right lower abdominal incision is tunneling. Cultures are obtained. The left lower abdominal incision as necrotic material. There is no evidence for Kadni's gangrene, no scrotal cellulitis. Musculoskeletal: (-) Edema Lymph: (-) Cervical adenopathy Neuro: Alert, Oriented x3 Psych: Mood and affect Normal soft, Triage Information Reviewed: Yes Vital Signs On Initial Exam: Initial Vitals Temp Pulse Resp BP Pulse Ox 97.8 F 80 18 84/43 97 12/03/18 14:15 12/03/18 14:15 12/03/18 14:15 12/03/18 14:15 12/03/18 14:15 Vital Signs Reviewed: Yes Diagnostics - Vital Signs Vital Signs Temp Pulse Resp BP Pulse Ox 12/03/18 14:15 97.8 F 80 18 84/43 97 - Laboratory Result Diagrams: 12/03/18 16:00 12/03/18 16:00 Lab Statement: Any lab studies that have been ordered have been reviewed, and results considered in the medical decision making process. - Radiology CXR Radiology Interpretation Completed By: Radiologist Summary of Radiographic Findings: No evidence for active cardiopulmonary disease. ED Provider has reviewed this report. - EKG 1832 Cardiac Rate: NL - 79 BPM Summary of EKG Findings: No STEMI. Course/Dx - Course Course Of Treatment: This patient is a 63 year old male presenting to [facility] with a chief complaint of foul swelling wounds since today. Labs reveal WBC 16.6 H, RBC 3.10 L, Hgb 7.4 L, Hct 24 L, MCV 78 L, MCH 24 L, RDW 17 H, MPV 6.9 , Absolute Neuts 12.7 H, Absolute Monos 1.3 H. He is in septic shock. Patient refused to get a CT against medical advice. Patient was informed of and understand the risk of and abdominal access and still refuses. After furter discussion patient agreed to CT and picc line if we help him urinate now. CXR reveals no evidence for active cardiopulmonary disease. Patient verified that he is full code. Patient will need to be admitted or transferred to an ICU. Patient currently has a transfer disposition. Dr. Moreno at [facility] accepted the patient for transfer. This plan was discussed wtih the patient and he was agreeable with this plan. Reason for transfer is continuity of surgical care, also availability of plastic surgery slot floorperson. There were some delays in the patient's care due to the patient refusing certain interventions, such as PICC line, such as repeat IV attempts, he also refused imaging at our facility. He was informed of the seriousness of his condition, which had high likelihood of being fatal if proper workup and treatment were not offered. He accepted these risks. A couple of hours later he reconsidered. Surgical and hospitalist consultations occurred in the emergency department during the patient's period of most profound hypotension with blood pressures in the 70s when he was not stable for transfer at the time. Please see Dr. Mendez and Dr. Pate dictated notes. As the last portion of his ordered fluid bolus was completed, his blood pressures did stabilize. Levophed was on standby. He is stable at the time of transfer. Etiology likely hypovolemic shock versus septic shock. He will require surgical consultation at [facility]. - Differential Dx/Clinical Impression Provider Diagnosis: Sepsis, Hypovolemic shock, Postoperative infection - Critical Care Time Critical Care Time: 75-104 min - 90 mins Discharge - Sign-Out/Discharge Documenting (check all that apply): Patient Departure - Transfer - Discharge Plan Condition: Stable Disposition: TRANS HIGHER LVL OF CARE FAC Referrals: No Primary Care Phys,NOPCP [Primary Care Provider] - - Billing Disposition and Condition Condition: STABLE Disposition: Trans Higher Lvl of Care Fac - Attestation Statements Document Initiated by Scribe: Yes Documenting Scribe: Yonny Vieira Provider For Whom Farhan is Documenting (Include Credential): Toni Ashford MD Scribe Attestation: Yonny Madrid, scribed for Toni Ashford MD on 12/03/18 at 1955. Scribe Documentation Reviewed: Yes Provider Attestation: The documentation as recorded by the Yonny kwok accurately reflects the service I personally performed and the decisions made by me, Toni Ashford MD Status of Scribe Document: Viewed
[2018-12-03] MEDS: NS 0.9% 1000 ML** 2,000 ML IV ONE ×2 (15:09→15:54)
[2018-12-03 16:40] LABS: ABS Lymphocytes 2.6 10^3/ul (1.0-4.8); ABS Monocytes 1.3 10^3/ul (0-0.8); ABS Neutrophils 12.7 10^3/ul (1.5-7.7); Hematocrit 24 % (42-52); Hemoglobin 7.4 g/dL (14.0-18.0); Lymphocyte % 15.4 %; Mean Corpuscular HGB Conc 31 g/dL (31-36); Mean Corpuscular Hemoglobin 24 pg (27-31); Mean Corpuscular Volume 78 fL (80-94); Mean Platelet Volume 6.9 fL (7.4-10.4); Platelet Count 283 10^3/uL (150-450); Red Cell Distribution Width 17 % (10.5-15); White Blood Count 16.6 10^3/uL (3.5-10.8)
[2018-12-03 16:49] LABS: Activated Partial Thrombo Time 26.5 seconds (26.0-36.3); INR 1.14 (0.82-1.09)
[2018-12-03 16:56] LABS: ALT 11 U/L (7-52); AST 15 U/L (13-39); Albumin 2.5 g/dL (3.2-5.2); Albumin/Globulin Ratio 0.6 (1-3); Alkaline Phosphatase 92 U/L (34-104); BUN/Creatinine Ratio 26.3 (8-20); Blood Urea Nitrogen 119 mg/dL (6-24); Calcium 9.3 mg/dL (8.6-10.3); Chloride 107 mmol/L (101-111); EGFR African American 15.9 (>60); EGFR Non-African American 13.2 (>60); Globulin 4.2 g/dL (2-4); Glucose 77 mg/dL (70-100); Sodium 132 mmol/L (135-145); Total Protein 6.7 g/dL (6.4-8.9)
[2018-12-03 16:58] LABS: Anion Gap 12 mmol/L (2-11); CO2 Carbon Dioxide 13 mmol/L (22-32); Potassium 5.3 mmol/L (3.5-5.0)
--- NOTE | 2018-12-03 19:58 | CONS ---
CC: Rony Nevarez MD * SURGICAL CONSULTATION: DATE OF CONSULT: 12/03/18 REASON FOR CONSULT: Wound infection and sepsis. REQUESTING PHYSICIAN: Toni Ashford MD HISTORY OF PRESENT ILLNESS: Mr. Davis is a 63-year-old gentleman with history of chronically severe obesity with type 2 diabetes, hypertension, hypothyroidism , coronary artery disease status post UT, chronic kidney disease, who was sent to the emergency room from the wound clinic today. The patient has a history of elective panniculectomy for recurrent panniculitis and this was done at [facility] by Dr. Mccann on 09/28/18. The patient subsequently developed wound dehiscence and infection and required readmission to [facility] in mid October, at which point the patient had wound debridement, washout, VAC placement. The patient was discharged to [facility] where he has been rehabbing. The patient apparently presented to the wound clinic today and was found to be hypotensive and therefore was sent to the emergency room. In the emergency room, the patient was found to be hypotensive with a blood pressure of 83/43, his pulse was 80, temperature was 97.8. Dr. Ashford evaluated the patient, administered intravenous fluid boluses and the patient was bolused 3 L with improvement in his blood pressure. His heart rate has remained in the 70s. Surgical consultation was requested due to the concern for sepsis. The patient denies abdominal pain. His main complaint is his desire to void. He states he has been eating and drinking without N/V. He states the wound care is being performed at [facility]. He does not know when he is scheduled to see his plastic surgeon next. PAST MEDICAL HISTORY: As above. PAST SURGICAL HISTORY: Significant for the above mentioned surgeries as well as wisdom teeth extractions and ingrown toenail surgeries. MEDICATIONS: 1. Melatonin. 2. Oxycodone. 3. Loperamide. 4. Acetaminophen. 5. Oxycodone. 6. Ondansetron. 7. Lexapro. 8. Insulin. 9. Bumex. 10. Ascorbic acid. 11. Cozaar. 12. Levothyroxine. 13. Ferrous sulfate. 14. Vitamin D. 15. Nystatin. 16. Metoprolol. 17. Lipitor. 18. Aspirin. ALLERGIES: None. PHYSICAL EXAM: A 63-year-old gentleman. He is awake, alert, lying in the hospital stretcher. He appears in no acute distress. Temperature is reported above, his pulse is 79, respirations are 16, his blood pressure is 95/56. The abdomen is massive. There is a patchy excoriated area of the right abdomen. The right lateral aspect of the panniculectomy wound is widely opened. There is granulating tissue with fibrinous exudate. The packing was removed. There was no active drainage. No evidence of necrotic tissue. There is foul odor and there is a widely open nearly symmetric wound in the left lateral aspect of the panniculectomy wound. The packing removed was brownish discolored feculent and there were patchy areas of granulation tissue as well as some evidence of necrosis of the subcutaneous fat. Abdominal examination was limited due to his severe obesity. DIAGNOSTIC STUDIES/LAB DATA: His WBCs were 16.6, hemoglobin 7.4, hematocrit 24. There is no shift. His chemistries show a sodium 132, potassium 5.2, chloride 107, bicarb is 13, BUN is 119, his creatinine is 4.5, lactate was 0.6. His transaminases, alk phos and total bili were normal. His albumin was 2.5. IMPRESSION: This is a 63-year-old gentleman with a complex past medical history including diabetes, clinically severe obesity, status post panniculectomy in September complicated by wound dehiscence and wound infection, status post debridement in mid October with ongoing problems with wound care. I believe the patient will require surgical debridement of his wounds. Due to the fact that plastic surgery is not available at our institution, my recommendation is that he return to [facility] where his plastic surgeon is in order that they can more properly manage his surgical care. This has been discussed with Dr. Ashford in the emergency room who will arrange the transfer. [id number]/[facility] #: [id number] WIL
--- NOTE | 2018-12-03 21:30 | CONS ---
CC: Primary care provider CONSULTATION REPORT: DATE OF CONSULT: 12/03/18 DATE OF EXAMINATION: 12/03/18 REQUESTING PHYSICIAN: ER provider Dr. Toni Ashford. REASON FOR CONSULT: Request for admission to [facility] for managing postoperative complication from panniculectomy done at [facility] and possible hypotensive and septic shock. HISTORY OF PRESENT ILLNESS: This is a 63-year-old male with a very complex medical history including and not limited to Diabetes mellitus, Morbid obesity, Coronary artery disease status post PTCA and ID in 2014, Chronic kidney disease stage 3, Hypothyroidism, Hypertension, Hyperlipidemia, Depression, Gastroparesis , presented to the emergency room from the wound care when he came in today for routine follow up for his panniculectomy site and he was referred to the emergency room from the Wound Clinic for further evaluation and treatment. In the emergency room, he presented with a blood pressure 84/51, nontachycardic with a pulse of 72 and normal temperature 97.8. The patient was given IV fluid 2 L, started to vanco and Zosyn, and medicine service was called for evaluation and possible admission to the medicine service possible ICU. The patient was seen and evaluated in the emergency room by me. History was obtained as above. On further reviewing his record, it should be noted that the patient had surgery at [facility] for this panniculectomy in September and he had a revision in October for infection. The patient himself is very awake, alert, providing history independently, but he is very frustrated and anxious and agitated for this recurrent complication. He is complaining of abdominal pain at the incision site and increased suprapubic pressure. No nausea or vomiting. No chest pain. Although, clinically he appeared dry with crusted oral mucosa. PAST MEDICAL HISTORY: 1. Again significant for morbid obesity 2. Diabetes mellitus. 3. Coronary artery disease status post ID, ST elevation in August 2014. 4. PTCA with bare-metal stent placed to a 95% occluded lesion in mid right coronary artery. 5. Chronic kidney disease stage 3. 6. Iron deficiency anemia, was noncompliant for iron therapy. 7. Hypothyroidism. 8. Hypertension. 9. Hyperlipidemia. 10. Depression. 11. Vitamin D deficiency 12. Chronic low back pain. 13. Gastroparesis. PAST SURGICAL HISTORY: 1. Amputation of the left fifth toe. 2. Cardiac catheterization. 3. Status post panniculectomy at [facility] in September 2018 with a revision in October. MEDICATIONS: Reviewed using the emergency room medical reconciliation sheet and listed as below. 1. Tylenol every 6 hours p.r.n. 2.. vitamin C 250 daily. 3. Aspirin 81 daily. 4. Lipitor 20 at bedtime. 5. Bumex 1 mg daily. 6. Vitamin D 1000 daily. 7. Lexapro 10 daily. 8. Iron 325 daily. 9. Insulin sliding scale. 10. Lantus 15 unit q.12. 11. levothyroxine 125 mcg daily. 12. Imodium p.r.n. 13. Losartan 50 mg daily. 14. Melatonin 5 daily. 15. Toprol-XL 100 b.i.d. 16. Zofran p.r.n. 17. oxycodone 5 mg p.o. q.4 hours p.r.n. ALLERGIES: No known drug allergies. FAMILY HISTORY: Noncontributory SOCIAL HISTORY: He was currently in [facility] for rehab. Normally he lives home alone. He does not drive, he goes on public transportation. REVIEW OF SYSTEMS: As per HPI, remaining otherwise unremarkable PHYSICAL EXAM: Vital Signs: Temperature is 97.8, pulse 77, respiratory 16, blood pressure 95/ 56. His last blood pressure was 104/57 with a MAP of 71 and heart rate 81 at 6: 37 pm Generally, he is awake, alert, and lucid. He knows where he is, he was able to give his history and follow command, quite agitated and frustrated. Head and Neck: Dry oral mucosa. Neck: Supple. Poor dentition. No carotid bruit, dry oral mucosa. Lungs: Limited to anterior auscultation. Good air flow. Not tachypneic. No rhonchi or rales. Cardiovascular: S1, S2. Regular rate and rhythm. Abdomen: He does have significant foul smell from his surgical wound bilaterally. He has a large open wound on the right lower quadrant with a purulent foul smell and secretion. His left lower quadrant abdominal surgical wound appear foul smell, black, and necrotic. Genitalia: He does have scrotal edema uncircumcised. Lower Extremities: Chronic venous stasis with trace ankle edema. DIAGNOSTIC STUDIES/LAB DATA: His diagnostics in the emergency room reveal his CBC; white count 16,000, hemoglobin 7.4, hematocrit 24, platelet 283. INR 1. His chemistry; sodium 132, potassium 5.3, bicarb 13, BUN 119, creatinine 4.5, lactic acid 0.6. Total bili 0.2, AST 15, ALT 11. Troponin 0.1. Imaging: Chest x-ray: Limited due to body habitus. Shows no acute pulmonary disease. EKG reveals sinus rhythm with a first-degree AV block, left axis deviation, poor R wave progress. The only EKG prior to that is dated back to , at which time the patient had same left axis deviation, poor R-wave progression, and little changes as noted. ASSESSMENT AND PLAN: 1. This is a 63-year-old male who comes into our facility from the wound clinic for what appeared to be infected bilateral panniculectomy site with the left side being necrotic associated with hypotension that required fluid resuscitation and hypovolemic shock with acute kidney injury. 2. My recommendation is at present time to refer the the patient back to his surgical center where a plastic surgeon is available. He will require debridement for his surgical wound and his dehiscence. 3. Aggressive fluid; he did receive 2 L, we will give him another 1 L and continue at 250 cc an hour for additional 2, so a total of 6 L of IV fluids in the first 6 hours. If it does not improve he may require pressor. 4. To secure central line access in case patient required pressors. 5. Before we can accept this patient to [facility], to consult our surgery here to make sure they do accept the patient and willing to pursue surgical debridement and treatment. I did speak with Dr. Pate and he will be evaluating the patient in the emergency room. 6. I did speak with our hydroelectric plant mechanical engineer, the case briefly reviewed. At present time , I believe the patient is stable for discharge. His blood pressure is stable, he is now on pressor, he requires resuscitation. 7. For his diabetes. Continue his Lantus and IV fluid and sliding scale. 8. For his anemia, it is probably acute on chronic from his postoperative acute illness and chronic kidney disease, need to be repeated in 6 hours and transfused symptomatically. Case again was signed back to Dr. Ashford with the transfer request to be placed from the ER to ER versus surgical services at [facility]. [id number]/[facility] #: [id number] WIL
[2018-12-03 21:37] LABS: Urine Appearance Cloudy; Urine Bilirubin Negative (Negative); Urine Blood Negative (Negative); Urine Color Yellow; Urine Glucose Negative (Negative); Urine Ketones Negative (Negative); Urine Nitrite Negative (Negative); Urine Protein Negative (Negative); Urine Specific Gravity 1.011 (1.010-1.030); Urine Urobilinogen Negative (Negative)
[2018-12-03 21:56] VITALS: BP 112/57
--- NOTE | 2018-12-05 05:53 | PN ---
Progress Note - Progress Note Date of Service: 12/03/18 Note: Patient's wound culture grew staph aureus positive and E. coli Patient was transferred to higher level of care We will await sensitivities and send letter to facility at that time.
== END | disposition short-term general hospital (02) ==
LOC: ED 13:52
DX: A41.9 Sepsis, unspecified organism (principal); R57.1 Hypovolemic shock; T81.40XA Infection following a procedure, unspecified, initial encounter; I10 Essential (primary) hypertension; E11.9 Type 2 diabetes mellitus without complications; E03.9 Hypothyroidism, unspecified; Z79.4 Long term (current) use of insulin; Z79.82 Long term (current) use of aspirin; Z79.899 Other long term (current) drug therapy
CPT/HCPCS: 36415; 71045; 80053; 81003; 83605; 84484; 85025; 85610; 85730; 87040; 87070; 87077; 87186; 87205; 87640; 87641; 93005; 96365; 96366; 96375; 96376; 99285; J2543; J3010; J3370